=== PATIENT | female | born 1955 | race Caucasian/White ===

== ENCOUNTER 2017-10-10 07:55 | Day surgery (SDC) | payer BC, OTHER ==
[~2017-10-10] VITALS: Ht 177.8 cm; Wt 96.6 kg
[~2017-10-10 07:55] MED LIST: ASPI-555 PO; CALC600T12 PO; L.AC1CAP6 PO; MULT-1203 PO; SODIUM CHLORIDE 0.9% 1000ML 1,000 ML IV ONE
[2017-10-10 08:36] VITALS: BP 124/82
[2017-10-10] MEDS ORDERED: PROPOFOL 10 MG/ML 20ML VIAL IV ONE ×2 (09:52→10:25)
[2017-10-10 10:30] VITALS: BP 81/55
== END 2017-10-10 11:00 ==
LOC: DAH 07:55 → ENDO 07:55
PROVIDERS: ATTEND Internal Medicine Gastroenterology
DX: Z12.11 Encounter for screening for malignant neoplasm of colon (principal); K21.9 Gastro-esophageal reflux disease without esophagitis; E03.9 Hypothyroidism, unspecified; Z98.890 Other specified postprocedural states; Z79.82 Long term (current) use of aspirin; Z79.899 Other long term (current) drug therapy
CPT/HCPCS: 45378; A4606; J2704 ×2; J7030